=== PATIENT | male | born 1980 | race Caucasian/White ===

== ENCOUNTER 2022-11-29 18:38 | Inpatient (IN) | payer OTHER ==
[2022-11-29] MEDS ORDERED: THIAMINE 100 MG/ML 2 ML VIAL IM STA (19:43)
[2022-11-29] MEDS ORDERED: PANTOPRAZOLE 40 MG/10 ML VIAL IVP STA (19:59)
[2022-11-29] MEDS ORDERED: LORazepam 2 MG/ML INJ IV PRN ×2 (19:59)
[2022-11-29] MEDS ORDERED: METOCLOPRAMIDE 5 MG/ML 2 ML VIAL IVP STA (19:59)
[2022-11-29] MEDS ORDERED: SODIUM CHLORIDE 0.9% 1,000 ML IV STA (20:02)
[2022-11-29] MEDS ORDERED: IBUPROFEN 400 MG TAB PO PRN (20:03)
[2022-11-29] MEDS ORDERED: NALOXONE 0.4 MG/ML 1 ML VIAL IV PRN (20:03)
--- NOTE | 2022-11-29 20:08 | ED ---
General Adult HPI - General Chief complaint: Alcohol Stated complaint: Alcohol Withdrawals Time Seen by Provider: 11/29/22 19:42 Source: patient, EMS, RN notes reviewed, old records reviewed Mode of arrival: EMS - History of Present Illness Initial comments: Patient is a 42-year-old male with past medical history remarkable for alcohol abuse who presents with a department after being transferred from [facility] for alcohol withdrawals. The history of alcohol abuse and alcohol withdrawals. Drinks 2 pints today. He was evaluated at [facility], and as they do not have the ability to administer IV medications for alcohol withdrawals on their admitting floors, which answered here for admission. States he does have a history of seizures from alcohol withdrawals. His last drink was earlier today at 3 PM. Typically drinks 2 pints per day. Denies any nausea or vomiting currently. Denies any chest pain or shortness of breath. Endorses some peripheral tremors. His no other acute complaints at this time. Presents for further evaluation at this time. Presents for admission. Denies any drug abuse otherwise. Has a history of hypertension but has been noncompliant with medications. - Related Data Home Medications Medication Instructions Recorded Confirmed No Known Home Medications 11/29/22 11/29/22 Allergies Allergy/AdvReac Type Severity Reaction Status Date / Time No Known Allergies Allergy Verified 11/29/22 20:28 Review of Systems ROS Statement: Those systems with pertinent positive or pertinent negative responses have been documented in the HPI. ROS Other: All systems not noted in ROS Statement are negative. Past Medical History Past Medical History: Hypertension Additional Past Medical History / Comment(s): ETOH, pancreatitis History of Any Multi-Drug Resistant Organisms: None Reported Past Surgical History: No Surgical Hx Reported Past Psychological History: Bipolar Smoking Status: Former smoker Past Alcohol Use History: Abuse, Daily, Heavy Past Drug Use History: None Reported General Exam - General Exam Comments Initial Comments: General: Appears in no acute distress.. Appears acutely intoxicated with alcohol. HEAD: Normal with no signs of head trauma. EYES: PERRLA, EOMI, conjunctiva normal, no discharge. ENT: Hearing grossly intact, normal oropharynx. RESPIRATORY: Clear breath sounds bilaterally. No wheezes, rales, or rhonchi. C/V: Regular rate and rhythm. S1 and S2 auscultated, peripheral pulses 2+ and intact throughout ABD: Abd is soft, nontender, nondistended EXT: Normal range of motion, no obvious deformity SKIN: No rashes or lesions observed on exposed skin. NEURO: Alert and oriented x 4. Cranial nerves II-XII intact. No focal sensory or strength deficits. Patient's peripheral tremors. Tongue fasciculations. Mild alcohol withdrawals at this time. CIWA is 9. Course Vital Signs 11/29/22 11/29/22 18:41 19:59 Temperature 97.8 F Pulse Rate 96 100 Respiratory 20 20 Rate Blood Pressure 160/102 152/102 O2 Sat by Pulse 94 L 96 Oximetry Medical Decision Making - Medical Decision Making Was pt. sent in by a medical professional or institution (, YUE, ACCESS CONSULTANT, urgent care, hospital, or skilled nursing...) When possible be specific @ -No Did you speak to anyone other than the patient for history (EMS, parent, family, police, friend...)? What history was obtained from this source @ -No Did you review nursing and triage notes (agree or disagree)? Why? @ -I reviewed and agree with nursing and triage notes Were old charts reviewed (outside hosp., previous admission, EMS record, old EKG, old radiological studies, urgent care reports/EKG's, skilled nursing records)? Report findings @ -Reviewed from [facility]. Differential Diagnosis (chest pain, altered mental status, abdominal pain women, abdominal pain men, vaginal bleeding, weakness, fever, dyspnea, syncope, headache, dizziness, GI bleed, back pain, seizure, CVA, palpatations, mental health, musculoskeletal)? @ -Alcohol withdrawals, alcohol intoxication, electrolyte abnormality, this list is not all inclusive. EKG interpreted by me (3pts min.). @ -As above X-rays interpreted by me (1pt min.). @ -None done CT interpreted by me (1pt min.). @ -None done U/S interpreted by me (1pt. min.). @ -None done What testing was considered but not performed or refused? (CT, X-rays, U/S, labs)? Why? @ -None What meds were considered but not given or refused? Why? @ -None Did you discuss the management of the patient with other professionals (professionals i.e. , YUE, ACCESS CONSULTANT, lab, RT, psych nurse, social work program coordinator, fingernail former, teacher, fire prevention officer, spring encaser)? Give summary @ -Discussed with admitting physician, see call Dr. Brandt who accepted the patient. Was smoking cessation discussed for >3mins.? @ -No Was critical care preformed (if so, how long)? @ -No Were there social determinants of health that impacted care today? How? (Homelessness, low income, unemployed, alcoholism, drug addiction, transportation, low edu. Level, literacy, decrease access to med. care, residential, rehab)? @ -No Was there de-escalation of care discussed even if they declined (Discuss DNR or withdrawal of care, Hospice)? DNR status @ -No What co-morbidities impacted this encounter? (DM, HTN, Smoking, COPD, CAD, Cancer, CVA, ARF, Chemo, Hep., AIDS, mental health diagnosis, sleep apnea, morbid obesity)? @ -None Was patient admitted / discharged? Hospital course, mention meds given and route, prescriptions, significant lab abnormalities, going to OR and other pertinent info. @ -Based on the patient's presentation and physical exam, I'm concerned for alcohol withdrawals. The patient. Was transferred here with alcohol withdrawals. Labs obtained at the outside facility were unremarkable other than alcohol intoxication. We'll repeat labs here and admit the patient. He will be placed on CIWA protocol. Vital signs within acceptable limits at this time. Patient was in agreement with this plan. EKG is unremarkable. Patient's labs are within acceptable limits other than alcohol intoxication a level of 211. I spoke with the admitting physician, Dr. Brandt accepted the admission. Patient was in agreement with this plan. Undiagnosed new problem with uncertain prognosis? @ -No Drug Therapy requiring intensive monitoring for toxicity (Heparin, Nitro, Insulin, Cardizem)? @ -No Were any procedures done? @ -No Diagnosis/symptom? @ -Alcohol withdrawals, alcohol intoxication Acute, or Chronic, or Acute on Chronic? @ -Acute Uncomplicated (without systemic symptoms) or Complicated (systemic symptoms)? @ -Complicated Side effects of treatment? @ -No Exacerbation, Progression, or Severe Exacerbation? @ -No Poses a threat to life or bodily function? How? (Chest pain, USA, [place], pneumonia, PE, COPD, DKA, ARF, appy, cholecystitis, CVA, Diverticulitis, Homicidal, Suic idal, threat to staff... and all critical care pts) @ -yes - Lab Data Result diagrams: 11/29/22 19:43 11/29/22 19:43 Lab Results 11/29/22 11/29/22 Range/Units 19:43 19:43 WBC 5.0 (3.8-10.6) k/uL RBC 4.08 L (4.30-5.90) m/uL Hgb 14.1 (13.0-17.5) gm/dL Hct 42.0 (39.0-53.0) % MCV 102.8 H (80.0-100.0) fL MCH 34.6 (25.0-35.0) pg MCHC 33.6 (31.0-37.0) g/dL RDW 14.1 (11.5-15.5) % Plt Count 131 L (150-450) k/uL MPV 8.0 Neutrophils % 60 % Lymphocytes % 30 % Monocytes % 5 % Eosinophils % 1 % Basophils % 1 % Neutrophils # 3.0 (1.3-7.7) k/uL Lymphocytes # 1.5 (1.0-4.8) k/uL Monocytes # 0.3 (0-1.0) k/uL Eosinophils # 0.1 (0-0.7) k/uL Basophils # 0.0 (0-0.2) k/uL Macrocytosis Slight Sodium 141 (137-145) mmol/L Potassium 4.9 (3.5-5.1) mmol/L Chloride 107 (98-107) mmol/L Carbon Dioxide 21 L (22-30) mmol/L Anion Gap 13 mmol/L BUN 6 L (9-20) mg/dL Creatinine 0.74 (0.66-1.25) mg/dL Est GFR (CKD-EPI)AfAm >90 (>60 ml/min/1.73 sqM) Est GFR (CKD-EPI)NonAf >90 (>60 ml/min/1.73 sqM) Glucose 86 (74-99) mg/dL Calcium 7.8 L (8.4-10.2) mg/dL Total Bilirubin 1.3 (0.2-1.3) mg/dL AST 255 H (17-59) U/L ALT 90 H (4-49) U/L Alkaline Phosphatase 180 H (38-126) U/L Total Protein 7.3 (6.3-8.2) g/dL Albumin 3.9 (3.5-5.0) g/dL Amylase 127 H (30-110) U/L Lipase 35 (23-300) U/L Serum Alcohol 211 H* mg/dL - EKG Data -: EKG Interpreted by Me EKG Comments: 12-lead Electrocardiogram Interpretation Note EKG was reviewed and interpreted by myself. 12-lead ECG performed at 1907 is interpreted by me as revealing normal sinus rhythm at a rate of 96 beats per minute. Cameron is normal. SC interval is 131 ms, QRS duration is 84 ms, QTc is 385 ms.. There were no ST or T wave abnormalities to suggest myocardial ischemia or injury. R wave progression across the precordium was satisfactory. By my interpretation this EKG is non-diagnostic for acute ischemia. Disposition Clinical Impression: Alcohol withdrawal Disposition: ADMITTED IP TO THIS [facility] Condition: Stable Referrals: Nonstaff,Physician [Primary Care Provider] - 1-2 days Time of Disposition: 20:03
[2022-11-29 20:25] LABS: Basophils % (A) 1 %; Eosinophils # (A) 0.1 k/uL (0-0.7); Eosinophils % (A) 1 %; HGB 14.1 gm/dL (13.0-17.5); Lymphocytes # (A) 1.5 k/uL (1.0-4.8); Lymphocytes % (A) 30 %; MCH 34.6 pg (25.0-35.0); MCHC 33.6 g/dL (31.0-37.0); MCV 102.8 fL (80.0-100.0); Macrocytosis Slight; Monocytes # (A) 0.3 k/uL (0-1.0); Monocytes % (A) 5 %; Neutrophils % (A) 60 %; Platelet Count 131 k/uL (150-450); RBC 4.08 m/uL (4.30-5.90); RDW 14.1 % (11.5-15.5)
[2022-11-29 20:26] LABS: ALT 90 U/L (4-49); AST 255 U/L (17-59); African American GFR (CKD) >90 (>60 ml/min/1.73 sqM); Albumin 3.9 g/dL (3.5-5.0); Alkaline Phosphatase 180 U/L (38-126); Amylase 127 U/L (30-110); Anion Gap 13 mmol/L; Blood Urea Nitrogen 6 mg/dL (9-20); Calcium 7.8 mg/dL (8.4-10.2); Carbon Dioxide 21 mmol/L (22-30); Chloride 107 mmol/L (98-107); Glucose 86 mg/dL (74-99); Lipase 35 U/L (23-300); Non-African American GFR(CKD) >90 (>60 ml/min/1.73 sqM); Potassium 4.9 mmol/L (3.5-5.1); Sodium 141 mmol/L (137-145); Total Bilirubin 1.3 mg/dL (0.2-1.3); Total Protein 7.3 g/dL (6.3-8.2)
[2022-11-29 20:28] LABS: Alcohol 211 mg/dL
[2022-11-29] MEDS: LORazepam 2 MG/ML INJ IV PRN (23:30)
[2022-11-30] MEDS ORDERED: METOCLOPRAMIDE 5 MG/ML 2 ML VIAL IVP STA (00:02)
--- NOTE | 2022-11-30 02:52 | P.HPIM ---
History of Present Illness H&P Date: 11/29/22 Patient is a 42-year-old male with a PMH of EtOH abuse who was transferred from [facility] alcohol withdrawal. The patient reports that he has a long- standing history of alcohol withdrawal and previous withdrawal with delirium tremens and alcohol withdrawal seizures. He reports taking 2/5 of hard liquor daily for the past several years. He reports trying to quit in the past and having to be hospitalized due to severe DTs. He reports last drink was yesterday at 3 PM. He reports feeling shaky at the time of interview and feeling somewhat ill. He denied chest discomfort, shortness of breath, nausea, vomiting, abdominal pain. The patient is eager to quit and go to a rehab facility. In the emergency room, EKG revealed sinus rhythm at [address]/T-wave changes on her as reviewed by me. Laboratory values was reviewed with MCV 102.8, platelet count 131, serum alcohol level 211, AST 255, ALT 90, alk phos 180. ED documentation reviewed and case discussed with ED provider. Review of systems: Pertinent positives and negatives as discussed in HPI, a complete review of sy stems was performed and all other systems are negative. Physical examination: Vital signs reviewed General: Tremulous male, no distress, appears at stated age, normal weight Derm: no unusual rashes/lesions, warm Head: atraumatic, normocephalic, symmetric Eyes: EOMI, no lid lag, anicteric sclera, pupils equal round reactive to light ENT: Nose and ears atraumatic Neck: No cervical lymphadenopathy, trachea midline, supple Mouth: no lip lesion, mucus membranes moist Cardiovascular: S1S2 reg, no murmur, positive dorsalis pedis pulse bilateral, no edema Lungs: CTA bilateral, no rhonchi, no rales, no accessory muscle use Abdominal: soft, nontender to palpation, no guarding Ext: muscle strength 5 out of 5 in all 4 extremities grossly, no gross muscle atrophy, no contractures, Neuro: CN II-XI grossly intact, no gross focal neuro deficits, outstretched mckeon d tremor with fasciculations noted Psych: Alert, oriented, appropriate affect Assessment: Alcohol withdrawal in active alcoholic Abnormal LFTs, due to EtOH abuse Thrombocytopenia, likely due to above alcohol abuse Macrocytosis Imaging: In the emergency room, EKG revealed sinus rhythm at [address]/T-wave changes on her as reviewed by me. Data Review: Laboratory values was reviewed with MCV 102.8, platelet count 131, serum alcohol level 211, AST 255, ALT 90, alk phos 180. Plan: CIWA protocol Continue with thiamine, IV fluids Fall precautions Check B12 and folate levels Cardiac monitoring DVT prophylaxis: IPCDs The patient is admitted with an anticipated greater than 2 midnight stay for evaluation of EtOH CODE STATUS: Full Code Discussed with: Patient Anticipated discharge place: Home Past Medical History Past Medical History: Hypertension Additional Past Medical History / Comment(s): ETOH, pancreatitis History of Any Multi-Drug Resistant Organisms: None Reported Past Surgical History: No Surgical Hx Reported Past Psychological History: Bipolar Smoking Status: Former smoker Past Alcohol Use History: Abuse, Daily, Heavy Past Drug Use History: None Reported - Past Family History Mother Family Medical History: Hyperlipidemia Medications and Allergies Home Medications Medication Instructions Recorded Confirmed Type No Known Home Medications 11/29/22 11/29/22 History Allergies Allergy/AdvReac Type Severity Reaction Status Date / Time No Known Allergies Allergy Verified 11/29/22 20:28 Physical Exam Vitals: Vital Signs Temp Pulse Resp BP Pulse Ox 11/29/22 22:19 89 16 125/84 95 11/29/22 19:59 100 20 152/102 96 11/29/22 18:41 97.8 F 96 20 160/102 94 L Intake and Output 11/29/22 11/29/22 11/30/22 14:59 22:59 06:59 Other: Weight 79.379 kg Results CBC & Chem 7: 11/29/22 19:43 11/29/22 19:43 Labs: Abnormal Lab Results - Last 24 Hours (Table) 11/29/22 11/29/22 Range/Units 19:43 19:43 RBC 4.08 L (4.30-5.90) m/uL MCV 102.8 H (80.0-100.0) fL Plt Count 131 L (150-450) k/uL Carbon Dioxide 21 L (22-30) mmol/L BUN 6 L (9-20) mg/dL Calcium 7.8 L (8.4-10.2) mg/dL AST 255 H (17-59) U/L ALT 90 H (4-49) U/L Alkaline Phosphatase 180 H (38-126) U/L Amylase 127 H (30-110) U/L Serum Alcohol 211 H* mg/dL
[2022-11-30] MEDS: LORazepam 2 MG/ML INJ IV PRN ×6 (05:00→22:18)
[2022-11-30] MEDS: THIAMINE 100 MG TAB PO SCH (08:19)
[2022-11-30] MEDS: FOLIC ACID 1 MG TAB PO SCH (08:19)
[2022-11-30] MEDS: PANTOPRAZOLE 40 MG/10 ML VIAL IV SCH (08:20)
[2022-11-30 10:00] LABS: Blood Urea Nitrogen 5.4 mg/dL (9.0-27.0); Calcium 8.4 mg/dL (8.7-10.3); Carbon Dioxide 25.2 mmol/L (21.6-31.8); Chloride 103 mmol/L (96-109); Glucose 79 mg/dL (70-110); Potassium 4.1 mmol/L (3.5-5.5); Sodium 140 mmol/L (135-145)
[2022-11-30 10:57] LABS: Basophils # (A) 0.03 X 10*3/uL (0.00-0.10); Basophils % (A) 0.9 %; Eosinophils # (A) 0.08 X 10*3/uL (0.04-0.35); Eosinophils % (A) 2.3 %; HCT 37.7 % (39.6-50.0); HGB 13.1 d/dL (13.0-17.0); Lymphocytes % (A) 26.3 %; MCH 34.7 pg (27.0-32.0); MCHC 34.7 d/dL (32.0-37.0); MCV 99.7 FL (80.0-97.0); Mean Platelet Volume 11.8 FL (9.5-12.2); Monocytes # (A) 0.38 X 10*3/uL (0.20-1.00); Monocytes % (A) 11.1 %; NRBC Per 100 WBC 0 X 10*3/uL (0.00-0.01); Neutrophils # (A) 2.02 X 10*3/uL (1.80-7.70); Neutrophils % (A) 59.1 %; Platelet Count 94 X 10*3/uL (140-440); RBC 3.78 X 10*6/uL (4.40-5.60); RBC Morphology Normal (Normal); RDW 14.3 % (11.5-14.5); WBC 3.42 X 10*3/uL (4.50-10.00)
--- NOTE | 2022-11-30 14:32 | P.PN ---
Subjective Progress Note Date: 11/30/22 Hospital course: Patient is a very pleasant 42-year-old male with a past medical history of alcohol abuse, severe DTs, and withdrawal seizures. Patient reports drinking 2- 3 pints of alcohol daily. He was transferred to our facility on 11/29/22 from [facility] for admission for medical detox. Upon arrival to our facility patient underwent full evaluation in the emergency department. Labs completed and reviewed. CBC showing thrombocytopenia with platelet count of 131. BMP unremarkable. Liver profile showing transaminitis with AST 255, ALT 90, and alkaline phosphatase of 180. Alcohol level upon arrival to our facility was 211. Patient was admitted under our services for medical detox. Physical exam: Patient seen and fully evaluated at bedside this morning. Patient with active tremors noted during time of assessment. Patient also reports nausea but denies any episodes of vomiting at this time. Vital signs reviewed and stable. General: Nontoxic, no distress and appears stated age. Derm: Skin warm and dry, normal coloration for ethnicity. Head: Atraumatic, normocephalic and symmetric. Eyes: EOMs intact, no lid lag, and anicteric sclera Mouth: no lip lesions, mucus membranes moist Cardiovascular: regular rate and rhythm with normal S1S2, no murmur, positive posterior tibial pulses bilaterally, and cap refill < 2 seconds. Lungs: Respirations even, regular, and unlabored on room air. Lungs CTA bilaterally, no rhonchi, no rales, no wheezing, and no accessory muscle usage. Abdominal: soft, nontender to palpation, no guarding, no appreciable organomegaly Ext: ROM intact. No gross muscle atrophy, no edema, no contractures Neuro: Speech clear, face symmetrical and CN II-XII grossly intact with no noted focal neuro deficits. Patient with active tremors noted at time of assessment. Psych: Alert and oriented to person, place, time, and situation. Appropriate and pleasant affect. Assessment and Plan of Care: Alcohol withdrawal Alcohol abuse disorder History of severe DTs History of alcohol withdrawal seizures Transaminitis secondary to long-term daily alcohol abuse Thrombocytopenia secondary to long-standing alcohol abuse Macrocytosis -Continue monitoring of CIWA scores and patient to be medicated with Ativan 0.5 mg every 4 hours as needed for CIWA score of 4-5, Ativan 1 mg every 4 hours for CIWA score of 6-7, Ativan 2 mg every 3 hours CIWA score of 8-9, and Ativan 2 mg every 2 hours forr CIWA score of 10 or greater.Current CIWA score 10. Pt has had a total of 4 units of ativan in past 24 hours. -Patient placed on scheduled Librium 50 mg daily will taper down once symptoms of withdrawal are better controlled. -Continuous IV hydration. -Thiamine 100 mg twice a day -Multivitamin daily -Folate 1 mg daily -Seizure, fall, aspiration, and elopement precautions in place. -Continued close monitoring of electrolytes and replace as needed. -Telemetry monitoring. Data review: Morning labs completed and reviewed. CBC showing leukopenia with WBC count of 3.42, hemoglobin 13.1, and platelet count of 94. BMP remains unremarkable. Vitamin B12 939. CODE STATUS: Full code DVT prophylaxis: Lovenox Discussed with: Patient and RN Anticipated discharge date: Clinical course to determine Anticipated discharge place: Home Patient was seen independently by Nurse Pracitioner. This document was prepared using [employer] dictation software. Please allow for errors in police pilot, while rare they do occur. Farhan Do NP rendered care for this patient independently, reviewed the findings and plan as documented in the note above. I did not physically speak with or examine the patient on this date. Objective - Vital Signs Vital signs: Vital Signs Temp 98.7 F 11/30/22 08:12 Pulse 91 11/30/22 08:12 Resp 20 11/30/22 08:12 BP 138/60 11/30/22 08:12 Pulse Ox 96 11/30/22 08:12 FiO2 Intake & Output 11/29/22 11/30/22 11/30/22 18:59 06:59 18:59 Intake Total 740 Balance 740 Weight 79.379 kg 79.379 kg Intake: Intake, IV Titration 500 Amount Sodium Chloride 0.9% 1, 500 000 ml @ 100 mls/hr IV . Q10H STA Rx#:[id number] Oral 240 - Labs CBC & Chem 7: 11/30/22 06:30 11/30/22 06:30 Labs: Abnormal Lab Results - Last 24 Hours (Table) 11/29/22 11/29/22 Range/Units 19:43 19:43 RBC 4.08 L (4.30-5.90) m/uL MCV 102.8 H (80.0-100.0) fL Plt Count 131 L (150-450) k/uL Carbon Dioxide 21 L (22-30) mmol/L BUN 6 L (9-20) mg/dL Calcium 7.8 L (8.4-10.2) mg/dL AST 255 H (17-59) U/L ALT 90 H (4-49) U/L Alkaline Phosphatase 180 H (38-126) U/L Amylase 127 H (30-110) U/L Serum Alcohol 211 H* mg/dL
[2022-11-30] MEDS: chlordiazePOXIDE 25 MG CAP PO SCH ×2 (15:33→22:17)
[2022-11-30] MEDS ORDERED: MAG HYDROX/AL HYDROX/SIMETH 30 ML, HYOSCYAMINE ELIXIR 10 ML, LIDOCAINE VISCOUS 10 ML PO ONE ×3 (17:42)
[2022-12-01 04:10] VITALS: RESP 18; TEMP 98
[2022-12-01] MEDS: FOLIC ACID 1 MG TAB PO SCH (08:58)
[2022-12-01] MEDS: THIAMINE 100 MG TAB PO SCH (08:58)
[2022-12-01] MEDS: chlordiazePOXIDE 25 MG CAP PO SCH (08:58)
[2022-12-01] MEDS ORDERED: ENOXAPARIN 40 MG/0.4 ML SYRINGE SQ SCH (09:00)
[2022-12-01] MEDS: PANTOPRAZOLE 40 MG/10 ML VIAL IV SCH (09:44)
[2022-12-01 09:56] LABS: HCT 41.5 % (39.0-53.0); HGB 13.9 gm/dL (13.0-17.5); MCH 34.9 pg (25.0-35.0); MCHC 33.6 g/dL (31.0-37.0); MCV 103.9 fL (80.0-100.0); Macrocytosis Slight; Mean Platelet Volume 9.3; RBC 3.99 m/uL (4.30-5.90)
[2022-12-01 09:59] LABS: ALT 55 U/L (4-49); AST 121 U/L (17-59); African American GFR (CKD) >90 (>60 ml/min/1.73 sqM); Albumin 3.1 g/dL (3.5-5.0); Alkaline Phosphatase 143 U/L (38-126); Anion Gap 7 mmol/L; Blood Urea Nitrogen 4 mg/dL (9-20); Calcium 8.4 mg/dL (8.4-10.2); Carbon Dioxide 26 mmol/L (22-30); Chloride 102 mmol/L (98-107); Glucose 140 mg/dL (74-99); Magnesium 1.4 mg/dL (1.6-2.3); Non-African American GFR(CKD) >90 (>60 ml/min/1.73 sqM); Potassium 3.6 mmol/L (3.5-5.1); Sodium 135 mmol/L (137-145); Total Bilirubin 1.9 mg/dL (0.2-1.3)
[2022-12-01 10:06] LABS: Platelet Count 78 k/uL (150-450)
[2022-12-01 10:44] VITALS: BP 158/84; PULSE 120
--- NOTE | 2022-12-01 11:41 | P.DS ---
Providers Date of admission: 11/29/22 20:03 Expected date of discharge: 12/01/22 Attending physician: Alonzo Brandt MD Primary care physician: Physician Nonstaff Hospital Course: Discharge Diagnosis: Alcohol withdrawal Alcohol abuse disorder History of severe DTs History of alcohol withdrawal seizures Transaminitis secondary to long-term daily alcohol abuse Thrombocytopenia secondary to long-standing alcohol abuse Hypomagnesemia Macrocytosis Hospital Course: Patient is a very pleasant 42-year-old male with a past medical history of alcohol abuse, severe DTs, and withdrawal seizures. Patient reports drinking 2- 3 pints of alcohol daily. He was transferred to our facility on 11/29/22 from [facility] for admission for medical detox. Upon arrival to our facility patient underwent full evaluation in the emergency department. Labs completed and reviewed. CBC showing thrombocytopenia with platelet count of 131. BMP unremarkable. Liver profile showing transaminitis with AST 255, ALT 90, and alkaline phosphatase of 180. Alcohol level upon arrival to our facility was 211. Patient was admitted under our services for medical detox. Patient was placed on scheduled librium 50 mg TID along with CIWA protocol with symptom triggered medication management with benzodiazepines, Ativan. Patient received a total of 6 mg of Ativan over the past 24 hours in addition to scheduled Librium. Patient very adamant to be discharged today. He is alert and oriented to person, place, time, and situation. Patient strongly advised to continue medical detox as he has had previous withdrawal seizure and severe DTs. Patient continues to be adamant for discharge. Medically, patient is stable at this time with the exception of tachycardia with heart rate fluctuating between 90 and 120 is believed to be secondary to withdrawal. However patient removed IV and refusing to allow anyone to replace. Again patient was alert to person, p lace, time, and situation. Patient strongly encouraged to attend an inpatient drug and alcohol rehabilitation program, however patient declined and stated he was going to return to his outpatient program. Patient discharged at this time. Physical exam: Vital signs reviewed and stable. General: Nontoxic, no distress and appears stated age. Derm: Skin warm and dry, normal coloration for ethnicity. Head: Atraumatic, normocephalic and symmetric. Eyes: EOMs intact, no lid lag, and anicteric sclera Mouth: no lip lesions, mucus membranes moist Cardiovascular: regular rate and rhythm with normal S1S2, no murmur, positive posterior tibial pulses bilaterally, and cap refill < 2 seconds. Lungs: Respirations even, regular, and unlabored on room air. Lungs CTA bilaterally, no rhonchi, no rales, no wheezing, and no accessory muscle usage. Abdominal: soft, nontender to palpation, no guarding, no appreciable organomegaly Ext: ROM intact. No gross muscle atrophy, no edema, no contractures Neuro: Speech clear, face symmetrical and CN II-XII grossly intact with no noted focal neuro deficits. Patient with active tremors noted at time of assessment. Psych: Alert and oriented to person, place, time, and situation. Appropriate and pleasant affect. A total of 32 minutes of time were spent preparing this complex discharge summary. Pt was discharged on 12/01/22 to 11:36 AM Patient was seen independently by Nurse Practitioner. This document was prepared using [employer] dictation software. Please allow for errors in naval designer while rare they do occur. Patient Condition at Discharge: Stable Plan - Discharge Summary Discharge Rx Participant: No New Discharge Prescriptions: No Action No Known Home Medications Discharge Medication List No Known Home Medications 11/29/22 [History] Follow up Appointment(s)/Referral(s): Nonstaff,Physician [Primary Care Provider] - 1-2 days (Make appointment with Primary care provider) Patient Instructions/Handouts: Abuse of Alcohol (DC), Alcohol Withdrawal (DC) Activity/Diet/Wound Care/Special Instructions: Activity: As tolerated. Take breaks as needed. Diet: Regular diet Special Instructions: Take all of your medications as directed and remember to keep all of your doctor's appointments and follow-up as needed. Strongly recommend inpatient drug and alcohol rehabilitation program, you were very adamant about being discharged and stated he will follow up outpatient with your program. Strongly recommend refraining from any and all alcohol use. Thank you for allowing us to participate in your care, it was truly a pleasure having you for our patient!!! Discharge/Stand Alone Forms: Personal Flour Worker Discharge Disposition: HOME SELF-CARE
[2022-12-01] MEDS ORDERED: MAGNESIUM OXIDE 400 MG TAB PO SCH ×2 (12:04→21:00)
== END 2022-12-01 12:35 | disposition home or self-care (01) | DRG 775 ==
LOC: EC 18:38 → 6NMEDSUR 20:03 → 3SCARD 22:21
PROVIDERS: ADMIT Internal Medicine; ATTEND Internal Medicine
PROC: HZ2ZZZZ Detoxification Services for Substance Abuse Treatment (ICD-10-PCS; principal; 2022-11-29)
DX: F10.231 Alcohol dependence with withdrawal delirium (principal); Z91.148 Patient's other noncompliance with medication regimen for other reason; F10.229 Alcohol dependence with intoxication, unspecified; Y90.7 Blood alcohol level of 200-239 mg/100 ml; D69.59 Other secondary thrombocytopenia; R74.01 Elevation of levels of liver transaminase levels; D75.89 Other specified diseases of blood and blood-forming organs; E83.42 Hypomagnesemia; I10 Essential (primary) hypertension; F31.9 Bipolar disorder, unspecified; Z71.41 Alcohol abuse counseling and surveillance of alcoholic; Z87.891 Personal history of nicotine dependence
CPT/HCPCS: 36415; 80048; 80053; 80320; 82150; 82607; 82747; 83690; 83735; 85025; 85027; 93005; 96372; 96374; 96375; 99285